=== PATIENT | female | born 1960 | race Caucasian/White ===

== ENCOUNTER 2019-03-21 09:21 | Inpatient (IN) | payer BC ==
[2019-03-21 10:28] LABS: ADD MAN DIFF? NO
[2019-03-21 10:31] LABS: WHITE BLOOD COUNT 7.5 10^3/ul (4.8-10.8)
[2019-03-21 10:31] LABS: BASOPHIL # 0.1 10^3/ul (0.0-0.1); BASOPHILS % 0.7 % (0.0-2.0); EOSINOPHILS # 0.3 10^3/ul (0.0-0.5); EOSINOPHILS % 4.1 % (0.0-7.0); HEMATOCRIT 40.7 % (37.0-47.0); HEMOGLOBIN 13.3 g/dl (12.0-16.0); LYMPHOCYTES # 3.3 10^3/ul (0.8-2.9); LYMPHOCYTES % 43.4 % (15.0-51.0); MEAN CORPUSCULAR HEMOGLOBIN 29.2 pg (29.0-33.0); MEAN CORPUSCULAR HGB CONC 32.7 g/dl (32.0-37.0); MEAN CORPUSCULAR VOLUME 89.5 fl (82.0-101.0); MEAN PLATELET VOLUME 10.9 fl (7.4-10.4); MONOCYTE # 0.4 10^3/ul (0.3-0.9); MONOCYTES % 5.5 % (0.0-11.0); NEUTROPHIL # 3.5 10^3/ul (1.6-7.5); NEUTROPHILS % 46.2 % (39.0-77.0); PLATELET COUNT 211 10^3/UL (140-415); RED BLOOD COUNT 4.55 10^6/ul (4.20-5.40); RED CELL DISTRIBUTION WIDTH 11.9 % (11.5-14.5)
[2019-03-21 10:53] LABS: INR 0.82; PROTIME 11.4 Sec (11.9-14.9); PT RATIO 0.9
[2019-03-21 10:54] LABS: PARTIAL THROMBOPLASTIN TIME 26.3 Sec (23.0-35.0)
[2019-03-21] MEDS ORDERED: SOD CHLORIDE 0.9% 1,000 ML IV (11:00)
[2019-03-21] MEDS: CEFAZOLIN 2 GM/50 ML (PMX) 50 ML IVPB (11:00)
[2019-03-21 11:06] LABS: ALANINE AMINOTRANSFERASE 25 IU/L (13-69); ALBUMIN 4.1 g/dl (3.3-4.9); ALBUMIN/GLOBULIN RATIO 1.32; ALKALINE PHOSPHATASE 159 IU/L (42-121); ANION GAP 9 (5-13); ASPARTATE AMINO TRANSFERASE 19 IU/L (15-46); BILIRUBIN,INDIRECT 0.4 mg/dl (0-1.1); BILIRUBIN,TOTAL 0.4 mg/dl (0.2-1.3); BLOOD UREA NITROGEN 11 mg/dl (7-20); CALCIUM 9.4 mg/dl (8.4-10.2); CARBON DIOXIDE 27 mmol/L (21-31); CHLORIDE 107 mmol/L (97-110); CREATININE 0.49 mg/dl (0.44-1.00); Estimated GFR > 60 mL/min (>60); GLUCOSE 122 mg/dl (70-220); POTASSIUM 4.4 mmol/L (3.5-5.1); SODIUM 143 mmol/L (135-144); TOTAL PROTEIN 7.2 g/dl (6.1-8.1)
[2019-03-21] MEDS ORDERED: PROPOFOL 20 ML (14:30)
[2019-03-21] MEDS ORDERED: ROCURONIUM 50 MG INJ (14:47)
[2019-03-21] MEDS ORDERED: LIDOCAINE 2% (SDV) 5 ML INJ (14:47)
[2019-03-21] MEDS ORDERED: CEFAZOLIN 1 GM INJ (14:48)
[2019-03-21] MEDS ORDERED: DEXAMETHASONE 4 MG/ML 5 ML INJ (14:50)
[2019-03-21] MEDS ORDERED: ONDANSETRON 4 MG INJ (14:50)
[2019-03-21] MEDS ORDERED: ONDANSETRON 4 MG INJ IV ×2 (16:00→16:30)
[2019-03-21] MEDS ORDERED: ACETAMINOPHEN 1000MG/100ML IV 100 ML IVPB (16:00)
[2019-03-21] MEDS ORDERED: GLYCOPYRROLATE 0.4 MG INJ (16:02)
[2019-03-21] MEDS ORDERED: NEOSTIGMINE 3 MG/3 ML SYRINGE (16:02)
[2019-03-21] MEDS: DIPHENHYDRAMINE 50 MG INJ IV (16:27)
[2019-03-21] MEDS: HYDROmorphONE 1 MG/5 ML IV SYRINGE IV ×2 (16:27→16:36)
[2019-03-21] MEDS ORDERED: hydrALAzine 20 MG INJ IV (16:30)
[2019-03-21] MEDS ORDERED: FENTAnyl 50 MCG/ML VIAL IV ×3 (16:30)
[2019-03-21] MEDS ORDERED: OXYCODONE/ACETAMINOPHEN (5/325) TAB PO ×2 (16:30)
[2019-03-21] MEDS ORDERED: ALBUTEROL 0.083% (NEB) 2.5 MG/3 ML AMP HHN (16:30)
[2019-03-21] MEDS ORDERED: METOCLOPRAMIDE 10 MG INJ IV (16:30)
[2019-03-21] MEDS ORDERED: LABETALOL HCL 20MG INJ IV (16:30)
[2019-03-21] MEDS ORDERED: HYDROmorphONE 1 MG/5 ML IV SYRINGE IV (16:30)
[2019-03-21] MEDS ORDERED: MEPERIDINE 25 MG INJ IV (16:30)
[2019-03-21] MEDS ORDERED: EPHEDrine 25 MG/5 ML SYG IV (16:30)
[2019-03-21] MEDS: MIDAZOLAM 1 MG/ML 2 ML INJ IV (16:36)
[2019-03-21] MEDS: morphine 2 MG INJ IV (18:22)
[2019-03-21] MEDS: D5W-0.45 NACL + KCL 20 MEQ 1,000 ML IV (18:31)
[2019-03-21] MEDS ORDERED: INSULIN GLARGINE [LANtus] 3 ML PEN SC ×2 (21:00→22:00)
[2019-03-21] MEDS: 1/2 NS + KCL 20 MEQ 1,000 ML IV (22:02)
[2019-03-21] MEDS: ATORVASTATIN 20 MG TAB PO (22:03)
[2019-03-21] MEDS: INSULIN ASPART [NOVOLOG] 3 ML PEN SC (22:06)
[2019-03-21] MEDS: INSULIN GLARGINE [LANTus] (100 UNITS/ML) SYG SC (22:39)
[2019-03-21] MEDS: HYDROCODONE/APAP (5/325) TAB PO (23:54)
[2019-03-22] MEDS: HYDROCODONE/APAP (5/325) TAB PO (01:35)
[2019-03-22] MEDS: metFORMIN 500 MG TAB PO ×2 (08:50→18:01)
[2019-03-22] MEDS: INSULIN ASPART [NOVOLOG] 3 ML PEN SC ×5 (08:55→21:12)
[2019-03-22] MEDS: KETOROLAC 30 MG INJ IV (10:17)
[2019-03-22] MEDS: 1/2 NS + KCL 20 MEQ 1,000 ML IV ×2 (10:20→23:40)
[2019-03-22] MEDS ORDERED: DEXTROSE 50% 50 ML SYRINGE IV ×2 (13:30)
[2019-03-22] MEDS ORDERED: GLUCAGON 1 MG INJ IM (13:30)
[2019-03-22] MEDS ORDERED: GLUCOSE GEL 15 GRAM TUBE BUCCAL (13:30)
[2019-03-22] MEDS ORDERED: GLUCOSE GEL 15 GRAM TUBE PO ×2 (13:30)
[2019-03-22] MEDS: INSULIN GLARGINE [LANTus] (100 UNITS/ML) SYG SC (21:11)
[2019-03-22] MEDS: ATORVASTATIN 20 MG TAB PO (21:12)
[2019-03-23] MEDS: HYDROCODONE/APAP (5/325) TAB PO ×2 (04:34→16:17)
[2019-03-23 05:07] LABS: ADD MAN DIFF? NO
[2019-03-23 05:14] LABS: BASOPHILS % 0.5 % (0.0-2.0); EOSINOPHILS # 0.1 10^3/ul (0.0-0.5); EOSINOPHILS % 0.6 % (0.0-7.0); HEMATOCRIT 26.2 % (37.0-47.0); HEMOGLOBIN 8.6 g/dl (12.0-16.0); LYMPHOCYTES # 3.5 10^3/ul (0.8-2.9); LYMPHOCYTES % 44.9 % (15.0-51.0); MEAN CORPUSCULAR HEMOGLOBIN 29.3 pg (29.0-33.0); MEAN CORPUSCULAR HGB CONC 32.8 g/dl (32.0-37.0); MEAN CORPUSCULAR VOLUME 89.1 fl (82.0-101.0); MEAN PLATELET VOLUME 11.7 fl (7.4-10.4); MONOCYTE # 0.5 10^3/ul (0.3-0.9); MONOCYTES % 6.1 % (0.0-11.0); NEUTROPHIL # 3.7 10^3/ul (1.6-7.5); NEUTROPHILS % 47.4 % (39.0-77.0); PLATELET COUNT 175 10^3/UL (140-415); RED BLOOD COUNT 2.94 10^6/ul (4.20-5.40); RED CELL DISTRIBUTION WIDTH 12.1 % (11.5-14.5)
[2019-03-23 05:14] LABS: WHITE BLOOD COUNT 7.9 10^3/ul (4.8-10.8)
[2019-03-23 05:46] LABS: ANION GAP 6 (5-13); BLOOD UREA NITROGEN 25 mg/dl (7-20); CALCIUM 8.4 mg/dl (8.4-10.2); CARBON DIOXIDE 25 mmol/L (21-31); CHLORIDE 109 mmol/L (97-110); CREATININE 0.58 mg/dl (0.44-1.00); Estimated GFR > 60 mL/min (>60); GLUCOSE 215 mg/dl (70-220); POTASSIUM 4.3 mmol/L (3.5-5.1); SODIUM 140 mmol/L (135-144)
[2019-03-23] MEDS: metFORMIN 500 MG TAB PO (08:50)
[2019-03-23] MEDS: INSULIN ASPART [NOVOLOG] 3 ML PEN SC ×3 (08:51→11:40)
[2019-03-23] MEDS: 1/2 NS + KCL 20 MEQ 1,000 ML IV (12:39)
[2019-03-23 13:37] LABS: ADD MAN DIFF? NO
[2019-03-23 13:38] LABS: BASOPHILS % 0.4 % (0.0-2.0); EOSINOPHILS # 0.2 10^3/ul (0.0-0.5); EOSINOPHILS % 2.2 % (0.0-7.0); HEMATOCRIT 28.7 % (37.0-47.0); HEMOGLOBIN 9.4 g/dl (12.0-16.0); LYMPHOCYTES # 4.5 10^3/ul (0.8-2.9); LYMPHOCYTES % 50.1 % (15.0-51.0); MEAN CORPUSCULAR HEMOGLOBIN 29.8 pg (29.0-33.0); MEAN CORPUSCULAR HGB CONC 32.8 g/dl (32.0-37.0); MEAN CORPUSCULAR VOLUME 91.1 fl (82.0-101.0); MEAN PLATELET VOLUME 11.5 fl (7.4-10.4); MONOCYTE # 0.5 10^3/ul (0.3-0.9); MONOCYTES % 5.9 % (0.0-11.0); NEUTROPHIL # 3.7 10^3/ul (1.6-7.5); PLATELET COUNT 188 10^3/UL (140-415); RED BLOOD COUNT 3.15 10^6/ul (4.20-5.40); RED CELL DISTRIBUTION WIDTH 12.2 % (11.5-14.5)
== END 2019-03-23 17:00 | disposition home or self-care (01) | DRG 582 ==
LOC: SDS 09:21 → REC 15:59 → MS1 18:00
PROVIDERS: Surgery Surgical Oncology
PROC: 0HTT0ZZ Resection of Right Breast, Open Approach (ICD-10-PCS; principal; 2019-03-21 13:30)
PROC: 07T50ZZ Resection of Right Axillary Lymphatic, Open Approach (ICD-10-PCS; 2019-03-21 13:30)
DX: D05.11 Intraductal carcinoma in situ of right breast (principal); Z68.42 Body mass index [BMI] 45.0-49.9, adult; E11.9 Type 2 diabetes mellitus without complications; E78.5 Hyperlipidemia, unspecified; I10 Essential (primary) hypertension; E66.01 Morbid (severe) obesity due to excess calories
CPT/HCPCS: 71045; 80048; 80053; 82962; 85025; 85610; 85730; 88309; 93005